=== PATIENT | female | born 1960 | race Caucasian/White ===

== ENCOUNTER 2023-06-25 09:19 | Outpatient (RCR) | payer OTHER, SELFPAY | END 2023-06-25 23:59 | disposition home or self-care (01) | LOC: CRHB 09:19 | PROVIDERS: ATTENDING PHYSICIAN Internal Medicine | DX: I25.10 Atherosclerotic heart disease of native coronary artery without angina pectoris (principal); I25.2 Old myocardial infarction | CPT/HCPCS: 93797; 93798; G0422; G0423 ==

== ENCOUNTER 2023-07-25 08:48 | Outpatient (RCR) | payer OTHER, SELFPAY | END 2023-07-25 23:59 | disposition home or self-care (01) | LOC: CRHB 08:48 | PROVIDERS: ATTENDING PHYSICIAN Internal Medicine | DX: I21.01 ST elevation (STEMI) myocardial infarction involving left main coronary artery (principal) | CPT/HCPCS: 93797; 93798; G0422; G0423 ==

== ENCOUNTER 2023-08-08 09:19 | Outpatient (RCR) | payer OTHER, SELFPAY | END 2023-08-08 23:59 | disposition home or self-care (01) | LOC: CRHB 09:19 | PROVIDERS: ATTENDING PHYSICIAN Internal Medicine | DX: I25.2 Old myocardial infarction (principal) | CPT/HCPCS: G0422; G0423 ==

== ENCOUNTER → 2023-08-09 08:31 | Outpatient (REF) | payer OTHER, SELFPAY | LOC: DHCBC MAIN 08:31 | PROVIDERS: ATTENDING PHYSICIAN Internal Medicine Cardiovascular Disease; FAMILY PHYSICIAN Internal Medicine | DX: I21.3 ST elevation (STEMI) myocardial infarction of unspecified site (principal); I25.42 Coronary artery dissection; E78.2 Mixed hyperlipidemia | CPT/HCPCS: 93306 ==

== ENCOUNTER 2023-12-31 09:57 | Emergency (ER) | payer OTHER, SELFPAY ==
[2023-12-31 10:12] VITALS: BP 183/82
[2023-12-31 10:46] LABS: % Basophils 1.3 % (0-2); % Eosinophils 1.9 % (0-6); % Immature Granulocytes 0.2 % (0-0.5); % Lymphocytes 23.7 % (20.5-51.1); % Monocytes 8.6 % (1.7-9.3); % Neutrophils 64.3 % (42.2-75.2); Absolute Basophils 0.1 10^3/uL (0-0.2); Absolute Eosinophils 0.1 10^3/uL (0-0.7); Absolute Lymphocytes 1.3 10^3/uL (1.2-3.4); Absolute Monocytes 0.5 10^3/uL (0.1-0.6); Absolute Neutrophils 3.4 10^3/uL (1.4-6.5); Hematocrit 39.3 % (37.0-47.0); Mean Corp Hgb Conc. 35.6 g/dL (33.0-37.0); Mean Corpuscular Hgb 31.8 pg (27.0-31.0); Mean Corpuscular Volume 89.3 fL (81.0-99.0); Mean Platelet Volume 10.8 fL (7.4-10.4); Nucleated Red Blood Cells % 0 %; Platelet Count 177 10^3/uL (130-400); Red Cell Dist. Width 12.1 % (11.5-14.5); White Blood Cell Count 5.4 10^3/uL (4.8-10.8)
[2023-12-31 11:00] VITALS: BP 121/72
[2023-12-31 11:00] LABS: ALT (SGPT) 30 U/L (0-35); AST (SGOT) 38 U/L (14-36); Albumin 4.9 g/dl (3.5-5.0); Alkaline Phosphatase 59 U/L (38-126); Blood Urea Nitrogen 14 mg/dl (7-17); Carbon Dioxide 29 mmol/L (22-30); Chloride 101 mmol/L (98-107); Glucose 113 mg/dl (70-99); Sodium 137 mmol/L (135-145); Total Bilirubin 1.2 mg/dl (0.2-1.3); Total Protein 7.1 g/dl (6.3-8.2); eGFR > 60.00
[2023-12-31 11:12] LABS: Troponin I < 0.012 ng/ml
--- NOTE | 2023-12-31 11:54 | ED.GENMED ---
History of Present Illness
General
Chief Complaint: Chest Pain
Source: patient
Exam Limitations: none
Time Seen by Provider: 12/31/23 10:45
Nursing documentation reviewed up to this point in time: agreed with
History of Present Illness
History of Present Illness:
63-year-old female with past medical history of CAD, asthma, hyperlipidemia presenting to the emergency department today with concerns of left axillary discomfort rating to her left shoulder and left ear over the past 5 days described as a mild achy
discomfort that is distractible denies associated shortness of breath nausea vomiting or diaphoresis. No lightheadedness.
Review of Systems
Review of Systems
Allergies reviewed?: Yes
All Other Systems: ROS reviewed and negative except as documented in HPI and ROS
Phy Exam
Physical Exam
Physical Exam:
GENERAL: Alert , in no apparent distress
EYE: pupils equal and reactive
NECK: Supple, no significant adenopathy.
ENT: o/p clr, mmm.
CARDIAC: Regular rate and rhythm .
LUNGS: Clear breath sounds bilaterally, no acute respiratory distress, no wheezes/rales/rhonchi
ABDOMEN: Soft, without focal tenderness, no r/g, no cvat
NEUROLOGICAL: Alert and oriented, no focal neuro deficits
SKIN: Warm and dry, skin intact.
MUSCULOSKELETAL: No edema, well perfused.
PSYCH: Normal and appropriate interaction.
Scores
Heart Score for Chest Pain Patients
STEMI patient?: No
History: Slightly or Non-Suspicious
ECG: Normal
Age: >45 - <65 years
Risk Factors: >/= 3 Risk Factors or History of CAD
Troponin: </= Normal Limit
Heart Score for Chest Pain Patients: 3
Heart Score Risk: 2.5% MACE over next 6 weeks
Course
Orders/Labs/Results
Orders:
Orders
12/31/23 10:02
Electrocardiogram (*1) Urgent
Reason for Study: Chest Pain
EKG- Treatment ONCE
12/31/23 10:33
Complete Blood Count/With Diff Urgent
Comprehensive Metabolic Panel Urgent
Troponin I Urgent
12/31/23 11:01
CT Chest/abd/pelvis Angio W/wo Urgent
Comment:
Reason For Exam: chest pain, hx of aneurym
Abnormal Lab Results
12/31/23
10:33
MCH 31.8 H pg
(27.0-31.0)
MPV 10.8 H fL
(7.4-10.4)
Glucose 113 H mg/dl
(70-99)
AST 38 H U/L
(14-36)
12/31/23 10:33
12/31/23 10:33
Vital Signs
Initial and Last Documented VS:
Initial Vital Signs
Temp Pulse Resp BP Pulse Ox
98.6 F 61 18 183/82 99
12/31/23 10:12 12/31/23 10:12 12/31/23 10:12 12/31/23 10:12 12/31/23 10:12
Last Documented Vital Signs
Temp Pulse Resp BP Pulse Ox
98.6 F 55 16 121/72 99
12/31/23 10:12 12/31/23 11:00 12/31/23 12:02 12/31/23 11:00 12/31/23 10:12
MDM/Problems Addressed
MDM/Problems Addressed:
63-year-old female presenting to the emergency department today with concerns of an achy discomfort to her left shoulder axillary region with radiation to her left ear over the past few days denies associated nausea vomiting numbness weakness.
Patient with no neurologic symptoms blood pressure elevated otherwise vital signs are normal. Labs unremarkable here troponin negative no evidence of ACS here CT scan was ordered of the chest abdomen pelvis concerning the chest discomfort and
axillary discomfort in association with history of vascular issues and previous aneurysms. CT scan did not show any evidence of vascular abnormalities. EKG normal. Patient generally well-appearing throughout ER stay.
*Critical Care Note
Total Time (30-74mins, 75-104mins- exclusive of procedures): Not Applicable
ED Attending Note
-
Portions of this chart may have been created with voice recognition software.� Occasional wrong word or��sound alike� substitutions may have occurred due to the inherent limitations of voice recognition software.
Discharge Plan
Departure
Patient Disposition: Home (Routine Discharge)
Date of Disposition: 12/31/23
Time of Disposition: 13:29
Patient with high blood pressure during this ER visit?: No
Condition: Good
Covid-19: Not Applicable
Discharge Problem:
Chest pain
Instructions: Chest Pain CBC Follow Up
Prescriptions:
No Action
montelukast [Singulair] 10 mg Tablet
10 mg PO DAILY
atorvastatin 40 mg Tablet
40 mg PO QPM Qty: 30 0RF
aspirin 81 mg Tablet,Chewable
81 mg PO DAILY Qty: 100 0RF
acetaminophen 325 mg Tablet
650 mg PO Q4HPRN PRN (Reason: mild pain) Qty: 60 0RF
clopidogrel 75 mg Tablet
75 mg PO DAILY Qty: 30 0RF
pantoprazole 40 mg Tablet,Delayed Release (Dr/Ec)
40 mg PO DAILY Qty: 30 0RF
metoprolol succinate 25 mg Tablet Extended Release 24 Hr
25 mg PO DAILY Qty: 30 0RF
Referrals:
Ines Blake MD [Family Provider] -
Activity Restrictions/Additional Instructions:
You came to the emergency department today with concerns of pain to the axilla chest and neck. You had a reassuring assessment. Please have close with cardiology. Return to the emergency department for any worsening, new or concerning symptoms.
Interventions
Interventions:
*Risk Screen - Suicide Last Done: 12/31/23 10:27
*General Assessment Last Done: 12/31/23 10:27
*Neglect/Abuse Screening Last Done: 12/31/23 10:27
ED- Fall Risk Assessment Last Done: 12/31/23 10:28
*ED COVID-19 Vaccine History Last Done: 12/31/23 10:27
ED- Cardiac Assessment Last Done: 12/31/23 10:28
Discharge Date and Time
Print Language: BURKIN[place]
[2023-12-31 13:34] VITALS: BP 105/58
== END 2023-12-31 13:44 | disposition home or self-care (01) ==
LOC: EMR 09:57
PROVIDERS: EMERGENCY PHYSICIAN Emergency Medicine; FAMILY PHYSICIAN Internal Medicine
DX: R07.89 Other chest pain (principal); I25.10 Atherosclerotic heart disease of native coronary artery without angina pectoris; J45.909 Unspecified asthma, uncomplicated; E78.00 Pure hypercholesterolemia, unspecified; Z86.79 Personal history of other diseases of the circulatory system
CPT/HCPCS: 99284; 71275; 74174; 80053; 84484; 85025; 93005; Q9967

== ENCOUNTER → 2024-01-06 09:53 | Outpatient (REF) | payer OTHER, SELFPAY | LOC: RCS 09:53 | PROVIDERS: ATTENDING PHYSICIAN Internal Medicine Cardiovascular Disease; FAMILY PHYSICIAN Internal Medicine | DX: I21.3 ST elevation (STEMI) myocardial infarction of unspecified site (principal); R07.89 Other chest pain; I25.42 Coronary artery dissection | CPT/HCPCS: 93017 ==

== ENCOUNTER → 2024-01-08 14:50 | Outpatient (REF) | payer OTHER, SELFPAY | LOC: RCS 14:50 | PROVIDERS: ATTENDING PHYSICIAN Internal Medicine Cardiovascular Disease; FAMILY PHYSICIAN Internal Medicine | DX: I21.3 ST elevation (STEMI) myocardial infarction of unspecified site (principal); R07.89 Other chest pain; I25.42 Coronary artery dissection | CPT/HCPCS: 93306 ==

== ENCOUNTER → 2024-02-04 07:51 | Outpatient (REF) | payer OTHER, SELFPAY | LOC: DHCBC/DCA 07:51 | PROVIDERS: ATTENDING PHYSICIAN Internal Medicine Cardiovascular Disease; FAMILY PHYSICIAN Internal Medicine | DX: R94.39 Abnormal result of other cardiovascular function study (principal); I21.3 ST elevation (STEMI) myocardial infarction of unspecified site; R07.89 Other chest pain; I25.42 Coronary artery dissection | CPT/HCPCS: 78452; 93017; A9500 ==